=== PATIENT | male | born 1955 | race Caucasian/White ===

== ENCOUNTER 2017-09-29 09:07 | Day surgery (SDC) | payer OTHER ==
--- NOTE | 2017-09-21 10:46 | HP ---
PREOPERATIVE HISTORY AND PHYSICAL: DATE OF ADMISSION/SURGERY: 09/29/17 ATTENDING SURGEON: Katelyn Allen MD * (DICTATED BYSOWMYA MANLEY) KITCHEN FOOD ASSEMBLER: Dr. Juarez. PROCEDURE: Osteophyte removal of right elbow. CHIEF COMPLAINT: Right elbow pain/mass. HISTORY OF PRESENT ILLNESS: This is a 62-year-old male who complains of mass on the end of his right elbow, which has been present for a number of years. It is gradually getting worse as far as growing in size and discomfort. He occasionally has flare-ups for which his primary care doctor gave some prednisone. He denies any injury to this elbow and does not complain of any numbness or tingling associated with it. He would like to have the mass removed as it has become quite bothersome and it interferes with his activities of daily life. The patient had an episode of chest pain back in 2014. He has had no recurrent symptoms since then and had a stress test a year ago, which was unremarkable. PAST MEDICAL HISTORY: 1. Hypertension. 2. Hypercholesterolemia. 3. BPH. PAST SURGICAL HISTORY: Plastic surgery as a child on face. CURRENT MEDICATIONS: 1. Aspirin low dose 81 mg daily. 2. Flomax 0.4 mg daily. 3. Lipitor 40 mg daily. 4. Lisinopril 10 mg daily. 5. Nitrostat 0.4 mg 1 q.5 minutes up to 3 doses p.r.n. ALLERGIES: No known drug allergies. FAMILY MEDICAL HISTORY: Lung cancer, COPD. 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 He denies tobacco use and recreational drug use. He drinks alcohol on rare occasion. REVIEW OF SYSTEMS: General: Negative for fevers, chills, night sweats, unexplained weight loss or gain. No known anesthesia problems in the past. HEENT: Negative for headache, lightheadedness, syncopal episodes, visual changes. Integumentary: Negative for abrasions, lesions, open wounds. Cardiothoracic: Negative for hypertension, chest pain, palpitations, edema. Respiratory: Negative for shortness of breath with exertion, chronic cough, wheezing. GI: Negative for nausea, vomiting, diarrhea, constipation, GERD. : Negative for nocturia, urinary frequency, urgency, history of UTIs, kidney problems. Musculoskeletal: Positive for current complaint. Negative for chronic or intermittent back pain or history of fractures. Neurological: Negative for paresthesias, numbness, history of seizure, stroke, poor balance. Endocrine: Negative for diabetes and thyroid issues. Hematologic: Negative for easy bruising, anemia, bleeding disorders, history of DVT. Infectious Disease: Negative for history of MRSA, hepatitis C, HIV. PHYSICAL EXAMINATION GENERAL: Well-developed, well-nourished 62-year-old male in no acute distress. VITAL SIGNS: Height 5 feet 8 inches, weight 242 pounds. Pulse rate 66, blood pressure 140/92. HEENT: Normocephalic, atraumatic. Pupils are equal, round, and reactive to light and accommodation. Extraocular movements are intact. Throat is clear. NECK: Supple. No palpable lymph nodes. PULMONARY: Lungs are clear to auscultation bilaterally. No wheezes, rales, or rhonchi. CARDIOVASCULAR: Regular rate and rhythm. S1, S2. No murmurs, rubs, or gallops. No edema. ABDOMEN: Positive bowel sounds. Soft, nontender. MUSCULOSKELETAL: On exam of his right elbow, he has a large prominence on the posterior aspect of the elbow emanating from the olecranon process. He has a full range of motion of the elbow. The mass is slightly tender to palpation. Skin is intact. Neurovascular function is intact. NEUROLOGICAL: Alert and oriented x3. Cranial nerves II through XII are intact. Sensation is intact to light touch. IMAGING STUDIES: X-rays AP, lateral, and oblique of the right elbow show a moderate-sized traction spur at the triceps insertion. There are also spurs on the lateral and medial aspect of the elbow. IMPRESSION: Olecranon osteophyte on the right. PLAN: The patient is scheduled to undergo an osteophyte removal right elbow with Dr. Allen on 09/29/17. He will return 10 days postop for followup and suture removal. A prescription for [place] was e-scribed to the patient's pharmacy for postoperative pain management. SOWMYA MANLEY [id number]/[facility] #: [id number] [facility] HEALTHCARELonnie
[~2017-09-29 09:07] MED LIST: Buffered Lidocaine 0.9% SYRIN* 5 ML/SYR SYRINGE INTRADERM ONE; Lidocaine 2% PF * 5 ML VIAL ONE; Midazolam* 1 MG/ML 2 ML VIAL (2 MG) ONE; Propofol* 10 MG/ML 20 ML BTL IV PUSH ONE; fentaNYL* 50 MCG/ML 2 ML VIAL (100 MCG VIAL) ONE
[2017-09-29] MEDS ORDERED: ceFAZolin 2 GM PREMIX (*) 2 GM/50 ML BAG IVPB ONE (09:17)
[2017-09-29] MEDS ORDERED: Bupivacaine 0.5% SDV PF* 30ML VIAL ONE (10:28)
[2017-09-29] MEDS ORDERED: Acetaminophen TAB* 325 MG PO PRN (10:31)
[2017-09-29] MEDS ORDERED: Ondansetron INJ* 2 MG/ML VIAL IV PRN (10:31)
[2017-09-29] MEDS ORDERED: oxyCODONE/Acetamin 5/325 MG* TAB PO PRN (10:31)
[2017-09-29] MEDS ORDERED: Naloxone* 0.4 MG/ML 1 ML VIAL IV PRN (10:31)
[2017-09-29] MEDS ORDERED: oxyCODONE TAB* 5 MG TAB PO PRN (10:31)
[2017-09-29] MEDS ORDERED: HYDROmorphone INJ* 0.5 MG/0.5 ML SYRINGE IV PRN (10:31)
[2017-09-29] MEDS ORDERED: fentaNYL* 50 MCG/ML 2 ML VIAL (100 MCG VIAL) IV PRN (10:31)
[2017-09-29] MEDS ORDERED: Ketorolac INJ* 30 MG/ML 1 ML VIAL ONE (11:09)
[2017-09-29 12:17] VITALS: BP 134/77
--- NOTE | 2017-09-29 22:28 | OP ---
DATE OF OPERATION: 09/29/17 [facility] DATE OF : 59 SURGEON: Katelyn Allen MD HEAD TURNING MACHINE OPERATOR: SOWMYA Doss ANESTHESIA: General. PRE-OP DIAGNOSIS: Right elbow osteophyte. POST-OP DIAGNOSIS: Right elbow osteophyte. OPERATIVE PROCEDURE: Remove right elbow osteophyte. ESTIMATED BLOOD LOSS: Zero. TOURNIQUET TIME: About 25 minutes. INDICATIONS FOR PROCEDURE: Erik is a 62-year-old man who has a painful lump at the tip of his olecranon process. X-ray shows it to be an osteophyte. He presents for removal. DESCRIPTION OF PROCEDURE: The patient was brought to the operating room, was given a general anesthetic and placed in the supine position on the operating room table with a tourniquet around his right upper arm. The skin of his right upper extremity was prepped and draped in the usual sterile fashion. The upper extremity was exsanguinated and the tourniquet elevated to 250 mmHg. A slightly curved incision was made towards the lateral aspect of the elbow, straight posterior. We dissected sharply through the subcutaneous tissue and through the olecranon bursa. The triceps tendon was incised longitudinally and subperiosteally dissected off of the osteophyte. There was abundant amount of thick white toothpaste type material and this was thoroughly debrided. The osteophyte was removed with an osteotome and rongeur back down to stable base of bone. The wound was copiously irrigated with saline. The triceps tendon was repaired with a #2 Ethibond suture and then the subcutaneous tissue closed with 2-0 Polysorb suture, the skin was closed with skin ruy and dressed with Xeroform, 4x4, Webril, and an Ray wrap. The patient tolerated the procedure well, was brought to the recovery room in good condition. [id number]/[facility] #: [id number] MTDD
== END 2017-09-29 12:29 | disposition home or self-care (01) ==
LOC: OREAST 09:07
PROVIDERS: ATTEND Orthopaedic Surgery
DX: M25.721 Osteophyte, right elbow (principal); I10 Essential (primary) hypertension; E78.00 Pure hypercholesterolemia, unspecified; N40.0 Benign prostatic hyperplasia without lower urinary tract symptoms; Z68.36 Body mass index [BMI] 36.0-36.9, adult; E78.5 Hyperlipidemia, unspecified
CPT/HCPCS: 88304; 88311; J0690; J1885; J2250; J2704; J3010

== ENCOUNTER 2018-05-31 09:18 | Emergency (ER) | payer OTHER ==
[2018-05-31 09:48] VITALS: BP 142/92
--- NOTE | 2018-05-31 10:37 | UC ---
Throat Pain/Nasal Waldo HPI - History of Current Complaint Chief Complaint: UCGeneralIllness Stated Complaint: SINUS PAIN, EAR PAIN Time Seen by Provider: 05/31/18 10:32 Pain Intensity: 0 - Allergies/Home Medications Allergies/Adverse Reactions: Allergies Allergy/AdvReac Type Severity Reaction Status Date / Time No Known Allergies Allergy Verified 05/31/18 09:42 PMH/Surg Hx/FS Hx/Imm Hx Previously Healthy: Yes - Surgical History Surgical History: Yes Surgery Procedure, Year, and Place: bone spur removal R elbow 2018 - Social History Alcohol Use: None Substance Use Type: None Smoking Status (MU): Never Smoked Tobacco - Immunization History Most Recent Influenza Vaccination: 2013 Most Recent Tetanus Shot: unknown Most Recent Pneumonia Vaccination: never Review of Systems All Other Systems Reviewed And Are Negative: Yes Constitutional: Negative: Fever, Chills, Fatigue Skin: Negative: Rash ENT: Positive: Ear Ache, Sinus Congestion, Sinus Pain/Tenderness. Negative: Sore Throat, Nasal Discharge Respiratory: Negative: Shortness Of Breath, Cough Cardiovascular: Positive: Negative Gastrointestinal: Negative: Vomiting, Diarrhea Neurological: Negative: Headache Physical Exam Triage Information Reviewed: Yes Appearance: Well-Appearing Vital Signs: Initial Vital Signs Temp 97.9 F 05/31/18 09:43 Pulse 82 05/31/18 09:43 Resp 16 05/31/18 09:43 BP 142/92 05/31/18 09:43 Pulse Ox 97 05/31/18 09:43 Vital Signs Reviewed: Yes Eyes: Positive: Conjunctiva Clear ENT: Positive: Pharyngeal erythema, Nasal congestion, TMs normal - left, TM bulging - partial R TM, Neck exam: Normal Neck: Positive: Supple, Nontender, No Lymphadenopathy. Negative: Nuchal Rigidity Respiratory Exam: Normal Cardiovascular Exam: Normal Skin: Negative: Rashes Throat Pain/Nasal Course/Dx - Course Assessment/Plan: Ear pain and sinusitis symptoms x1 wk. On exam there was outpouching of part of his R TM-Bullous MYringitis of R ear. sinusitis likely viral but will cover for bacterial source. Both can be tx'd w/ Augmentin. Vitals good. Exam otherwise unremarkable. - Differential Dx/Diagnosis Differential Diagnosis/HQI/PQRI: Otitis Media, Pharyngitis, Sinusitis, Other Provider Diagnosis: Bullous myringitis of right ear, Sinusitis Discharge - Sign-Out/Discharge Documenting (check all that apply): Patient Departure All imaging exams completed and their final reports reviewed: No Studies - Discharge Plan Condition: Good Disposition: HOME Prescriptions: Amoxicillin/Clavulanate TAB* [Augmentin TAB 875*] 875 mg PO BID 5 Days #10 tab Patient Education Materials: Sinusitis (ED) Referrals: Gerard Mendez MD [Primary Care Provider] - Additional Instructions: If no improvement please follow up with your primary care. - Billing Disposition and Condition Condition: GOOD Disposition: Home - Attestation Statements Provider Attestation: I was available for consult. This patient was seen by the SWAPNA. The patient was not presented to, seen by, or examined by me. -Ru
== END 2018-05-31 10:52 | disposition home or self-care (01) ==
LOC: UCEAST 09:18
DX: J32.9 Chronic sinusitis, unspecified (principal); H73.011 Bullous myringitis, right ear
CPT/HCPCS: 99212; G0463

== ENCOUNTER 2019-06-26 21:52 | Emergency (ER) | payer OTHER ==
[2019-06-26] MEDS ORDERED: cloNIDine TAB* 0.1 MG PO ONE (22:20)
--- NOTE | 2019-06-26 22:30 | ED ---
Hypertension - HPI Summary HPI Summary: 64 year old male presents with high blood pressure. He states he checks his blood pressure once a week. He states it has been fine until today. He states that he felt off she he checked his blood pressure and it was 190. She states that he was a little bit dizzy when he stood up. Denies any chest pain or shortness of breath. No dizziness currently. No headache. He takes lisinopril which he has been on for a while. Has a no medical conditions beside high blood pressure. He has not been sick recently. No fevers. - History of Current Complaint Chief Complaint: EDHypertension Stated Complaint: HIGH BLOOD PRESSURE PER PT Time Seen by Provider: 06/26/19 22:12 - Allergies/Home Medications Allergies/Adverse Reactions: Allergies Allergy/AdvReac Type Severity Reaction Status Date / Time No Known Allergies Allergy Verified 06/26/19 21:57 Home Medications: Home Medications Lisinopril [Zestril] 10 mg PO DAILY 06/26/19 [History Confirmed 06/26/19] Tamsulosin CAP* [Flomax CAP*] 0.4 mg PO DAILY 06/26/19 [History Confirmed ] PMH/Surg Hx/FS Hx/Imm Hx Endocrine/Hematology History: Denies: Hx Diabetes Cardiovascular History: Reports: Hx Angina, Hx Hypertension Denies: Hx Coronary Artery Disease, Hx Myocardial Infarction, Hx Valvular Heart Disease Comment Only: Hx Hypercholesterolemia - Needs lab work to evaluate Respiratory History: Denies: Hx Asthma, Hx Chronic Obstructive Pulmonary Disease (COPD) GI History: Reports: Hx Gastroesophageal Reflux Disease History: Reports: Hx Benign Prostatic Hyperplasia, Other Problems/ Disorders - BPH Sensory History: Reports: Hx Contacts or Glasses - glasses for work Denies: Hx Hearing Aid Opthamlomology History: Reports: Hx Contacts or Glasses - glasses for work - Cancer History Hx Chemotherapy: No - Surgical History Surgery Procedure, Year, and Place: bone spur removal R elbow 2018 Infectious Disease History: No Infectious Disease History: Denies: Traveled Outside the [place] in Last 30 Days - Family History Known Family History: Positive: Non-Contributory - Social History Alcohol Use: Occasionally Substance Use Type: Reports: None Smoking Status (MU): Never Smoked Tobacco Review of Systems Negative: Fever Negative: Chest Pain Negative: Shortness Of Breath All Other Systems Reviewed And Are Negative: Yes Physical Exam Triage Information Reviewed: Yes Vital Signs On Initial Exam: Initial Vitals Temp Pulse Resp BP Pulse Ox 97.3 F 85 16 206/98 97 06/26/19 21:54 06/26/19 21:54 06/26/19 21:54 06/26/19 21:54 06/26/19 21:54 Vital Signs Reviewed: Yes Appearance: Positive: Well-Appearing Skin: Positive: Warm, Dry Head/Face: Positive: Normal Head/Face Inspection Eyes: Positive: Normal, Conjunctiva Clear ENT: Positive: Pharynx normal Respiratory/Lung Sounds: Positive: Clear to Auscultation, Breath Sounds Present Cardiovascular: Positive: Normal, RRR Abdomen Description: Positive: Nontender, Soft Bowel Sounds: Positive: Present Musculoskeletal: Positive: Normal Neurological: Positive: Normal Psychiatric: Positive: Normal Procedures - Sedation Patient Received Moderate/Deep Sedation with Procedure: No Diagnostics - Vital Signs Vital Signs Temp Pulse Resp BP Pulse Ox 06/26/19 22:16 191/103 06/26/19 21:54 97.3 F 85 16 206/98 97 - Laboratory Result Diagrams: 06/26/19 22:47 06/26/19 22:47 Lab Statement: Any lab studies that have been ordered have been reviewed, and results considered in the medical decision making process. - EKG No standard instances Cardiac Rate: NL EKG Rhythm: Sinus Rhythm Summary of EKG Findings: sinus rhythm Re-Evaluation - Re-Evaluation First Eval Re-Evaluation Time: 23:20 Comment: bp is 144/80 Hypertension Course/Dx - Course Course Of Treatment: 64 year old male presents with high blood pressure. He states he checks his blood pressure once a week. He states it has been fine until today. He states that he felt off she he checked his blood pressure and it was 190. She states that he was a little bit dizzy when he stood up. Denies any chest pain or shortness of breath. No dizziness currently. No headache. He takes lisinopril which he has been on for a while. Has a no medical conditions beside high blood pressure. He has not been sick recently. No fevers. On exam lungs CTA. Heart regular rate and rhythm. ekg sinus rhythm. will give dose of clondine. wbc normal. troponin zero. electrolytes normal. repeat bp is 144/80. patient states bp have been in 130 so do not want to adjust blood pressure medications at this time. will have follow up with primary and told to keep a log. patient understand and agrees with plan. - Diagnoses Differential Diagnosis/HQI PQRI: Hypertensive Crisis, Hypertensive Urgency, Myocardial Infarction Provider Diagnoses: Hypertension Discharge ED - Sign-Out/Discharge Documenting (check all that apply): Patient Departure - Discharge Plan Condition: Good Disposition: HOME Patient Education Materials: Hypertension (ED) Referrals: Gerard Mendez MD [Primary Care Provider] - Additional Instructions: take blood pressure and follow up with primary about numbers limit salt intake Return to ED if develop any new or worsening symptoms - Billing Disposition and Condition Condition: GOOD Disposition: Home
[2019-06-26 22:55] LABS: ABS Eosinophils 0.1 10^3/ul (0-0.6); ABS Lymphocytes 1.4 10^3/ul (1.0-4.8); ABS Monocytes 0.6 10^3/ul (0-0.8); ABS Neutrophils 5.5 10^3/ul (1.5-7.7); Eosinophil % 1.8 %; Hematocrit 46 % (42-52); Hemoglobin 15.9 g/dL (14.0-18.0); Lymphocyte % 17.8 %; Mean Corpuscular HGB Conc 34 g/dL (31-36); Mean Corpuscular Hemoglobin 31 pg (27-31); Mean Corpuscular Volume 91 fL (80-94); Mean Platelet Volume 8.4 fL (7.4-10.4); Platelet Count 172 10^3/uL (150-450); Red Blood Count 5.09 10^6 /uL (4.18-5.48); Red Cell Distribution Width 13 % (10-15); White Blood Count 7.7 10^3/uL (3.5-10.8)
[2019-06-26 23:04] LABS: Urine Appearance Clear; Urine Bilirubin Negative (Negative); Urine Blood Negative (Negative); Urine Color Yellow; Urine Glucose Negative (Negative); Urine Ketones Negative (Negative); Urine Nitrite Negative (Negative); Urine Protein Negative (Negative); Urine Specific Gravity 1.021 (1.010-1.030); Urine Urobilinogen Negative (Negative)
[2019-06-26 23:13] LABS: Albumin 4.1 g/dL (3.2-5.2); Albumin/Globulin Ratio 1.8 (1-3); BUN/Creatinine Ratio 14.2 (8-20); Calcium 9.4 mg/dL (8.6-10.3); EGFR African American 69.5 (>60); EGFR Non-African American 57.5 (>60); Globulin 2.3 g/dL (2-4); Potassium 3.8 mmol/L (3.5-5.0); Total Bilirubin 0.4 mg/dL (0.2-1.0); Total Protein 6.4 g/dL (6.4-8.9)
[2019-06-26 23:34] VITALS: BP 144/80
== END 2019-06-26 23:45 | disposition home or self-care (01) ==
LOC: ED 21:52
DX: I10 Essential (primary) hypertension (principal); K21.9 Gastro-esophageal reflux disease without esophagitis; N40.0 Benign prostatic hyperplasia without lower urinary tract symptoms; Z79.899 Other long term (current) drug therapy
CPT/HCPCS: 36415; 80053; 81003; 84484; 85025; 93005; 99282; A9270-GY

== ENCOUNTER 2020-12-04 00:21 | Observation (INO) ==
[2020-12-04] MEDS ORDERED: cefTRIAXone 1 gm/50 mL NS BAG 1 GM/50 ML BAG IV ONE (02:18)
[2020-12-04] MEDS ORDERED: NS 0.9% 1000 ml BAG 1,000 ML IV ONE (02:18)
[2020-12-04 03:00] LABS: ABS Lymphocytes 0.4 10^3/ul (1.0-4.8); ABS Monocytes 0.4 10^3/ul (0-0.8); ABS Neutrophils 10.3 10^3/ul (1.5-7.7); Eosinophil % 0.3 %; Hematocrit 45 % (42-52); Hemoglobin 15.8 g/dL (14.0-18.0); Lymphocyte % 3.4 %; Mean Corpuscular HGB Conc 35 g/dL (31-36); Mean Corpuscular Hemoglobin 32 pg (27-31); Mean Corpuscular Volume 92 fL (80-94); Mean Platelet Volume 8.1 fL (7.4-10.4); Platelet Count 149 10^3/uL (150-450); Red Blood Count 4.93 10^6 /uL (4.18-5.48); Red Cell Distribution Width 13 % (10-15); White Blood Count 11.1 10^3/uL (3.5-10.8)
[2020-12-04 03:01] LABS: Urine Appearance Cloudy; Urine Bilirubin Negative (Negative); Urine Blood 3+ (Negative); Urine Color Straw; Urine Glucose Negative (Negative); Urine Ketones Negative (Negative); Urine Nitrite Negative (Negative); Urine Protein Negative (Negative); Urine Specific Gravity 1.016 (1.002-1.030); Urine Urobilinogen Negative (Negative)
[2020-12-04 03:04] LABS: Urine Bacteria Absent (Absent); Urine Red Blood Cell 3+(>10/hpf) (Absent); Urine White Blood Cell 1+(6-10/hpf) (Absent)
[2020-12-04 03:08] LABS: Activated Partial Thrombo Time 25.2 seconds (26.0-38.0); INR 1.1 (0.86-1.15)
[2020-12-04] MEDS ORDERED: Piperacillin/Tazobac ADVAN 3.375 GM in NS 0.9% 100 ml BAG 100 ML IVPB ONE (03:12)
[2020-12-04] MEDS ORDERED: NS 0.9% 1000 ml BAG 1,000 ML IV.FLUID IV ONE (03:12)
[2020-12-04 03:17] LABS: Albumin 4.4 g/dL (3.2-5.2); Albumin/Globulin Ratio 1.8 (1-3); C Reactive Protein 36.64 mg/L (<8.01); Calcium 9.5 mg/dL (8.6-10.3); EGFR African American 82.7 (>60); EGFR Non-African American 68.3 (>60); Globulin 2.5 g/dL (2-4); Potassium 3.7 mmol/L (3.5-5.0); Total Bilirubin 0.6 mg/dL (0.2-1.0); Total Protein 6.9 g/dL (6.4-8.9)
[2020-12-04] MEDS ORDERED: NS 0.9% 1000 ml BAG 1,000 ML IV SCH ×2 (05:45→06:00)
[2020-12-04] MEDS: Enoxaparin 40 MG/0.4 ML SYR SUBCUT SCH (05:53)
[2020-12-04 06:23] LABS: ABS Lymphocytes 0.3 10^3/ul (1.0-4.8); ABS Monocytes 0.5 10^3/ul (0-0.8); ABS Neutrophils 12.2 10^3/ul (1.5-7.7); Eosinophil % 0.1 %; Hematocrit 44 % (42-52); Hemoglobin 14.9 g/dL (14.0-18.0); Lymphocyte % 2.3 %; Mean Corpuscular HGB Conc 34 g/dL (31-36); Mean Corpuscular Hemoglobin 31 pg (27-31); Mean Corpuscular Volume 92 fL (80-94); Mean Platelet Volume 7.8 fL (7.4-10.4); Platelet Count 142 10^3/uL (150-450); Red Blood Count 4.76 10^6 /uL (4.18-5.48); Red Cell Distribution Width 13 % (10-15); White Blood Count 13.1 10^3/uL (3.5-10.8)
[2020-12-04 06:39] LABS: ALT 19 U/L (7-52); AST 17 U/L (13-39); Albumin 4.1 g/dL (3.2-5.2); Albumin/Globulin Ratio 1.7 (1-3); Alkaline Phosphatase 57 U/L (35-149); Anion Gap 10 mmol/L (2-11); Blood Urea Nitrogen 25 mg/dL (6-24); CO2 Carbon Dioxide 25 mmol/L (22-32); Calcium 8.6 mg/dL (8.6-10.3); Chloride 103 mmol/L (101-111); EGFR African American 58.1 (>60); Globulin 2.4 g/dL (2-4); Glucose 160 mg/dL (70-100); Potassium 3.8 mmol/L (3.5-5.0); Sodium 138 mmol/L (135-145); Total Protein 6.5 g/dL (6.4-8.9)
[2020-12-04 06:43] LABS: Troponin I 0.08 ng/mL (<0.03)
[2020-12-04] MEDS ORDERED: HYDROmorphone 0.5 MG/0.5 ML SYRINGE IV PRN (07:57)
[2020-12-04] MEDS ORDERED: Ondansetron 4 mg VIAL 2 MG/ML 2 ml VIAL IV PRN (08:10)
[2020-12-04 10:28] LABS: Troponin I 0.03 ng/mL (<0.03)
[2020-12-04 11:38] LABS: Urine Appearance Cloudy; Urine Bilirubin Negative (Negative); Urine Blood 3+ (Negative); Urine Color Straw; Urine Glucose Negative (Negative); Urine Ketones Negative (Negative); Urine Nitrite Negative (Negative); Urine Protein Negative (Negative); Urine Urobilinogen Negative (Negative)
[2020-12-04 11:45] LABS: Urine Bacteria Absent (Absent); Urine Red Blood Cell 3+(>10/hpf) (Absent); Urine White Blood Cell 1+(6-10/hpf) (Absent)
[2020-12-04 13:34] LABS: Troponin I 0.03 ng/mL (<0.03)
[2020-12-05] MEDS ORDERED: cefTRIAXone 1 gm/50 mL NS BAG 1 GM/50 ML BAG IVPB SCH (02:00)
[2020-12-05 08:35] LABS: ABS Eosinophils 0.1 10^3/ul (0-0.6); ABS Lymphocytes 0.8 10^3/ul (1.0-4.8); Eosinophil % 1.1 %; Hematocrit 46 % (42-52); Hemoglobin 15.6 g/dL (14.0-18.0); Lymphocyte % 11.8 %; Mean Corpuscular HGB Conc 34 g/dL (31-36); Mean Corpuscular Hemoglobin 32 pg (27-31); Mean Corpuscular Volume 93 fL (80-94); Mean Platelet Volume 7.4 fL (7.4-10.4); Nucleated Red Blood Cells % 0.1; Platelet Count 141 10^3/uL (150-450); Red Blood Count 4.95 10^6 /uL (4.18-5.48); Red Cell Distribution Width 14 % (10-15)
[2020-12-05 08:51] LABS: Calcium 8.6 mg/dL (8.6-10.3); EGFR Non-African American 66.9 (>60); Potassium 4.1 mmol/L (3.5-5.0)
[2020-12-05] MEDS: Enoxaparin 40 MG/0.4 ML SYR SUBCUT SCH (08:54)
[2020-12-05 11:22] VITALS: BP 165/84
== END 2020-12-05 16:13 | disposition home or self-care (01) ==
LOC: EDHOLD 00:21 → ED 00:21 → SSU 04:30
PROVIDERS: ADMIT Internal Medicine; ATTEND Internal Medicine